=== PATIENT | female | born 1930 | race Caucasian/White ===

== ENCOUNTER 2021-02-17 10:32 | Emergency (ER) | payer MEDICARE ==
[~2021-02-17] VITALS: Ht 154.9 cm; Wt 55.9 kg
[2021-02-17] MEDS ORDERED: LORA1TAB4 PO (10:52)
[2021-02-17] MEDS ORDERED: LOSA100T50 PO (10:52)
[2021-02-17] MEDS ORDERED: MOBI4TAB PO (10:52)
[2021-02-17] MEDS ORDERED: ZOLO25TA PO (10:52)
[2021-02-17] MEDS ORDERED: MAGN250T7 PO (10:52)
[2021-02-17] MEDS ORDERED: CLAR10CA3 PO (10:52)
[2021-02-17] MEDS ORDERED: REME15TA2 PO (10:52)
[2021-02-17] MEDS ORDERED: ATOR1TAB19 PO (10:52)
[2021-02-17 12:51] LABS: HEMATOCRIT 44.5 % (36.0-47.0); MEAN CORPUSCULAR HEMOGLOBIN 29.5 pg (27.0-33.0); MEAN CORPUSCULAR HGB CONC 33.7 g/dl (32.0-36.5); MEAN CORPUSCULAR VOLUME 87.4 fl (80.0-96.0); PLATELET COUNT, AUTOMATED 298 10^3/uL (150-450); RED BLOOD COUNT 5.09 10^6/uL (4.00-5.40); WHITE BLOOD COUNT 9.7 10^3/uL (4.0-10.0)
[2021-02-17 13:23] LABS: ACETAMINOPHEN LEVEL < 2.0 UG/ML (10.0-30.0); ALBUMIN 3.4 GM/DL (3.2-5.2); ALT/SGPT 38 U/L (12-78); BILIRUBIN,DIRECT 0.1 MG/DL (0.0-0.2); BILIRUBIN,TOTAL 0.4 MG/DL (0.2-1.0); BLOOD UREA NITROGEN 17 MG/DL (7-18); CALCIUM LEVEL 9.7 MG/DL (8.8-10.2); CARBON DIOXIDE LEVEL 30 MEQ/L (21-32); CHLORIDE LEVEL 106 MEQ/L (98-107); CREATININE FOR GFR 0.66 MG/DL (0.55-1.30); ETHYL ALCOHOL (ETHANOL) < 0.003 % (0.000-0.010); GLOMERULAR FILTRATION RATE > 60.0 (>32); GLUCOSE, FASTING 90 MG/DL (70-100); POTASSIUM SERUM 4.3 MEQ/L (3.5-5.1); SALICYLATE LEVEL < 1.7 MG/DL (5.0-30.0); SODIUM LEVEL 139 MEQ/L (136-145); TOTAL PROTEIN 6.5 GM/DL (6.4-8.2)
[2021-02-17 14:08] LABS: CK-MB VALUE MASS 1.5 NG/ML (<3.6); CPK CREATINE PHOSPHOKINASE 70 U/L (26-192); MB/CK RELATIVE INDEX 2.14 (< OR =4); TROPONIN I < 0.02 NG/ML (< 0.10)
[2021-02-17 14:14] LABS: VITAMIN B12 LEVEL 496 PG/ML (247-911)
--- NOTE | 2021-02-17 14:42 | REP ---
INDICATION: new delerium vs paranoia' eval for ich. COMPARISON: None. TECHNIQUE: Helical scanning is acquired. 5 mm axial images were reformatted. Coronal MPR images were generated. FINDINGS: Bone window settings demonstrate an intact bony calvarium. There is no evidence of skull fracture or incidental bony calvarial lesion. The visualized paranasal sinuses appear clear. No intraorbital abnormality is seen. . There is mild vascular calcification in the distal internal carotid arteries bilaterally. There is moderate generalized volume loss. Periventricular white matter low-density is seen bilaterally in the supratentorial brain consistent with small vessel atherosclerotic change. There are tiny old lacunar infarcts in the basal ganglia bilaterally. Mild physiologic calcification is seen in the basal ganglia as well. There is no evidence of intracranial hemorrhage. No mass, infarct, or extra-axial fluid collection is seen. IMPRESSION: Vascular calcification, generalized volume loss, extensive small-vessel changes. 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 These are tiny. No acute intracranial abnormality seen. <Electronically signed by Pierce iGrard > 02/17/21 [id number]
--- NOTE | 2021-02-17 14:47 | REP ---
INDICATION: eval for cardiomegaly, chf, pneumonia COMPARISON: None. TECHNIQUE: PA and lateral. FINDINGS: The mediastinum and cardiac silhouette are normal. The lung arboleda are clear and without acute consolidation, effusion, or pneumothorax. The skeletal structures are intact and normal. IMPRESSION: No acute cardiopulmonary process. <Electronically signed by John Park > 02/17/21 0923
[2021-02-17 15:07] LABS: AMPHETAMINES LEVEL URINE NEGATIVE (NEGATIVE); BARBITURATES URINE NEGATIVE (NEGATIVE); BENZODIAZEPINES URINE NEGATIVE (NEGATIVE); CANNABINOIDS URINE NEGATIVE (NEGATIVE); COCAINE METABOLITE URINE NEGATIVE (NEGATIVE); METHADONE URINE NEGATIVE (NEGATIVE); OPIATES URINE NEGATIVE (NEGATIVE); PHENCYCLIDINE URINE NEGATIVE (NEGATIVE)
[2021-02-17] MEDS ORDERED: POLYVINYL ALCOHOL OPHTH SOLN 15 ML(LIQUITEARS) OU PRN (15:25)
[2021-02-17 18:55] VITALS: BP 177/93
[2021-02-17 19:30] LABS: RSV AMPLIFICATION NEGATIVE (NEGATIVE)
--- NOTE | 2021-02-18 18:44 | ECGEPIP ---
[facility] - ED Test Date: 2021-02-17 Pat Name: RENE CASTILLO Department: Room: - Gender: Female [employer] Instrument [employer] Supervisor: LAUREL : [id number] Requested By: ELLA Martinez Order Number: [id number] Reading MD: Luann Ignacio Measurements Intervals [place] Rate: 69 P: 50 UT: 188 QRS: -23 QRSD: 92 T: 14 QT: 412 QTc: 441 Interpretive Statements Sinus rhythm with sinus arrhythmia with occasional premature ventricular complexes NSTTW abnormalities No prior Electronically Signed on 02-18-2021 18:44:02 EDT by Luann Ignacio
== END 2021-02-17 19:32 | disposition home or self-care (01) ==
LOC: M ED 10:32
DX: F22 Delusional disorders (principal); I10 Essential (primary) hypertension; E78.5 Hyperlipidemia, unspecified; G47.33 Obstructive sleep apnea (adult) (pediatric); F31.9 Bipolar disorder, unspecified